=== PATIENT | male | born 1970 | race Caucasian/White ===

== ENCOUNTER 2019-11-10 19:38 | Emergency (ER) | payer SELFPAY ==
[2019-11-10 19:51] VITALS: TEMP 97; BMI 25.5
--- NOTE | 2019-11-10 20:41 | PDOC ---
Attending Attestation - Resident Resident Name: Austin Myas - ED Attending Attestation I have performed the following: I have examined & evaluated the patient, The case was reviewed & discussed with the resident, I agree w/resident's findings & plan - HPI HPI: 11/10/19 23:13 Pt comes with an episode of slurred speech today while he was doing homework with a friend on the computer. He noticed that his speech was slurred, friend didn't notice. Pt states that he got up and started walking and felt a bit off balance. He got nervous and came to the ER, as he has a hx of MS that was diagnosed 15 yrs back. Pt has no other complaints. Pt states that he was is [place] today and then drove abck to [employer] and that he has been drinking a lot of coffee and not eating or hydrating enough. Pt states that he felt sleepy while driving. Pt's neurologists used to be at [facility] in [place] He has not been there in years. However, he states that he will follow up there. - Physicial Exam PE: 11/10/19 23:17 Normal exam HEENT normal heart [id number] lungs CTAB abd soft NT ND no flank pain No extremity swelling No neuro findings Agree with resident exam - Medical Decision Making 11/10/19 21:29 Blood tests are all normal 11/10/19 22:[address] SHOWS NO INTRACRANIAL PATHOLOGY 11/10/19 23:18 Pt is stable for d/c home 11/10/19 23:19 We will hydrate pt in the ER. He has been drinking water in the ER. Discharge - Discharge Information Problems reviewed: Yes Clinical Impression/Diagnosis: Slurred speech, Weakness, History of multiple sclerosis Condition: Fair Disposition: HOME - Follow up/Referral Referrals: [facility] [place] [facility] [Provider Group] Natanael Hwang MD [Staff Physician] - - Patient Discharge Instructions Additional Instructions: You were seen in the ER for slurred speech and weakness. We did a physical exam, EKG, labs, and a CT-scan of your head, which did not show any emergent problems. We gave you referrals for primary care and neurology, and you should follow up with these doctors within one week. Please return to the ER for fever, slurred speech, facial droop, severe headache, weakness in your arms or legs, or for any other concerning symptoms. - Post Discharge Activity
[2019-11-10 20:43] LABS: BASO % 0.7 % (0-2.0); EOS % 2.7 % (0-4.5); HEMATOCRIT 41.4 % (35.4-49); HEMOGLOBIN 14.2 GM/dL (11.7-16.9); LYMPH % 27.7 % (8-40); MCH 29.7 pg (25.7-33.7); MCHC 34.3 g/dl (32.0-35.9); MEAN CELL VOLUME 86.5 fl (80-96); MEAN PLT VOLUME 9.3 fl (7.5-11.1); NEUT % 60.9 % (42.8-82.8); PLATELET COUNT 217 K/MM3 (134-434); RBC 4.78 M/mm3 (4.00-5.60); RDW 13.2 % (11.9-15.9); WHITE BLOOD COUNT 7.1 K/mm3 (4.0-10.0)
--- NOTE | 2019-11-10 21:02 | PDOC ---
History of Present Illness - General Chief Complaint: Weakness Stated Complaint: SLURRED SPEECH Time Seen by Provider: 11/10/19 19:59 - History of Present Illness Initial Comments: 11/10/19 20:29 49yo M with reported PMH of MS (not on meds), depression, and ADHD presents to the hospital concerned he is having a stroke because he was slurring his words around 7pm for around 30 minutes. Patient states this happened 20 years ago and was told he has MS. He reports that yesterday he had a low grade fever, coughing, and sore throat. He got a rapid covid test which he reports as negative. At present, he states those symptoms have resolved, but today he states he has felt generalized weakness, dizziness, and had a 30 minute episode of slurred speech at 7pm. Also reports pain in an upper left tooth. ROS otherwise negative. Patient states he would not take steroids, even if it means he would otherwise. PMH: as above PSH: none Meds: wellbutrin, guaifenesin Allergies: none ETOH: former heavy drinker, last drink 1.5 years ago Drugs: former cannabis user Tobacco: denies PCP: in [place] [facility]: in [facility] Neuro: hasn't seen one in 20 years ROS GENERAL/CONSTITUTIONAL: No fever or chills. weakness. HEAD, EYES, EARS, NOSE AND THROAT: No change in vision. No ear pain or discharge. No sore throat. CARDIOVASCULAR: No chest pain or shortness of breath RESPIRATORY: No cough, wheezing, or hemoptysis. GASTROINTESTINAL: No nausea, vomiting, diarrhea or constipation. GENITOURINARY: No dysuria, frequency, or change in urination. MUSCULOSKELETAL: No joint or muscle swelling or pain. No neck or back pain. SKIN: No rash NEUROLOGIC: No headache, loss of consciousness, or change in strength/sensation. slurred speech ENDOCRINE: No increased thirst. No abnormal weight change HEMATOLOGIC/LYMPHATIC: No anemia, easy bleeding, or history of blood clots. ALLERGIC/IMMUNOLOGIC: No hives or skin allergy. PE GENERAL: Awake, alert, and fully oriented, in no acute distress HEAD: No signs of trauma, normocephalic, atraumatic EYES: PERRLA, EOMI, sclera anicteric, conjunctiva clear ENT: Auricles normal inspection, hearing grossly normal, nares patent, oropharynx clear without exudates. Moist mucosa Mouth: poor dentition. no erythema, fluctuance or tenderness NECK: Normal ROM, supple, no lymphadenopathy, JVD, or masses LUNGS: No distress, speaks full sentences, clear to auscultation bilaterally HEART: Regular rate and rhythm, normal S1 and S2, no murmurs, rubs or gallops, peripheral pulses normal and equal bilaterally. ABDOMEN: Soft, nontender, normoactive bowel sounds. No guarding, no rebound. No masses EXTREMITIES : Normal inspection, Normal range of motion, no edema. No clubbing or cyanosis. NEUROLOGICAL: Cranial nerves II through XII grossly intact. Normal speech, normal gait, no focal sensorimotor deficits SKIN: Warm, Dry, normal turgor, no rashes or lesions noted Vital Signs Temp Pulse Resp BP Pulse Ox 97 F L 80 18 132/87 99 11/10/19 19:48 11/10/19 19:48 11/10/19 19:48 11/10/19 19:48 11/10/19 19:48 MDM: with reported PMH of MS (not on meds), depression, and ADHD presents to the hospital concerned he is having a stroke because he was slurring his words around 7pm for around 30 minutes. Also reports generalized weakness. DDx includes MS flare, stroke, covid, psychosomatic symptoms. -EKG -CT head -CXR -CBC, CMP, trop, alc/tylenol/salicylates 11/10/19 21:04 Spoke with neurologist Eri Alvarez. He doubts the MS diagnosis given no history of flares since initial diagnosis. Also thinks stroke is unlikely given lack of risk factors. If at neurological baseline, recommends outpatient neuro f/u. 11/10/19 21:05 : Katty, brother. Patient gave permission for healthcare team to discuss his medical care with brother Katty. 11/10/19 23:44 EKG: NSR, rate 77, incomplete RBBB, left anterior fascicular block, no ischemic ST-T changes Labs: unremarkable CXR: no acute pathology Given 250ml NS bolus DC home with neuro and PCP referrals tPA Exclusion Checklist 0-3hr - Time Elapsed Date last known well: 11/10/19 Time last known well: 19:00 Elaspsed time: Day(s) and 4 Hour(s) and 44 Minutes - Thrombolytic Therapy Candidate Is the patient eligible for Thrombolytic Therapy?: No - Exclusion Criteria 0-3hr SBP greater than 185 or DBP greater than 110mmHg despite tx: No Recent IC/spinal surgery,head trauma or stroke w/in last 3mo: No Hx of previous IC hemorrhage, IC neoplasm, AVM or aneurysm: No Active internal bleeding: No Blding diathesis(low plt ct, inc PTT,INR>1.7 or use of NOAC): No Symptoms suggest subarachnoid hemorrhage: No CT demonstrates multilobar infarct(>1/3 cerebral hemiphere): No Arterial puncture at noncompressible site in previous 7 days: No Blood glucose concentration less than 50mg/dL (2.7mmol/L): No - Relative Exclusion Criteria 0-3h Care team unable to determine eligibility: No IV/IA thrombolysis/thrombectomy @ another hosp prior arrival: No Life expectancy <1yr/severe co-morbid illness/LEDGER CLERK on admit: No : No Patient/family refused: No Stroke severity too mild (non-disabling): Yes Recent acute PR (w/in previous 3 months): No Seizure at onset with postictal residual neuro impairments: No Major surgery or serious trauma w/in previous 14 days: No Recent GI or hemorrhage (w/in previous 21 days): No - Ineligibility reason(s) Reasons No tPA given: See reason(s) noted above NIH Stroke Scale - Last Known Well Date/Time & Onset Date Last Known Well: 11/10/19 Time Last Known Well: 19:00 - Initial Evaluation Level of consciousness: Alert Ask patient the month and their age: Answers both correctly Ask patient to open & close eyes; make fist and let go: Obeys both correctly Best gaze (horizontal eye movement): Normal Visual field testing: No visual field loss Facial paresis (Show teeth/raise eyebrows/close eyes tight): Normal symmetrical movement Motor Function: Left Arm: Normal Motor Function: Right Arm: Normal (extends arm 90 (or 45) degrees for 10 seconds without drift Motor Function: Left Leg: Normal (extends leg 30 degrees for 5 seconds without drift) Motor Function: Right Leg: Normal (extends leg 30 degrees for 5 seconds without drift) Limb Ataxia: No ataxia Sensory(Use pinprick test arms,legs,trunk,face/side to side): Normal Best language (Describe picture, name items, read sentences): No Aphasia Dysarthria (read several words): Normal articulation Extinction and Inattention: No abnormality - Total Score NIH Stroke Scale Score: 0 Past History - Medical History Allergies/Adverse Reactions: Allergies Allergy/AdvReac Type Severity Reaction Status Date / Time No Known Allergies Allergy Verified 11/10/19 19:51 COPD: No Other medical history: multiple Sclerosis - Psycho-Social/Smoking History Smoking History: Never smoked - Substance Abuse Hx (Audit-C & DAST Scrn) How often the patient has a drink containing alcohol: Never Score: In Men: 4 or > Positive; In Women: 3 or > Positive: 0 Screen Result (Pos requires Nsg. Audit-10AR): Negative *Physical Exam - Vital Signs Last Vital Signs Temp Pulse Resp BP Pulse Ox 97 F L 80 18 132/87 99 11/10/19 19:48 11/10/19 19:48 11/10/19 19:48 11/10/19 19:48 11/10/19 19:48 ED Treatment Course - LABORATORY CBC & Chemistry Diagram: 11/10/19 20:20 11/10/19 20:20 Discharge - Discharge Information Problems reviewed: Yes Clinical Impression/Diagnosis: Slurred speech, Weakness Condition: Fair Disposition: HOME - Admission No - Follow up/Referral Referrals: Natanael Hwang MD [Staff Physician] - [facility] [place] [facility] [place]Provider Group] - Patient Discharge Instructions Additional Instructions: You were seen in the ER for slurred speech and weakness. We did a physical exam, EKG, labs, and a CT-scan of your head, which did not show any emergent problems. We gave you referrals for primary care and neurology, and you should follow up with these doctors within one week. Please return to the ER for fever, slurred speech, facial droop, severe headache, weakness in your arms or legs, or for any other concerning symptoms. - Post Discharge Activity
[2019-11-10 21:14] LABS: ALBUMIN 3.7 g/dl (3.4-5.0); ALK PHOS 59 U/L (45-117); ANION GAP 6 MMOL/L (8-16); BILIRUBIN,TOTAL 0.3 mg/dL (0.2-1); BLOOD UREA NITROGEN 18.4 mg/dL (7-18); CALCIUM 8.6 mg/dL (8.5-10.1); CHLORIDE 104 mmol/L (98-107); CO2 30 mmol/L (21-32); GLUCOSE,RANDOM 100 mg/dL (74-106); POTASSIUM 3.9 mmol/L (3.5-5.1); SGOT/AST 18 U/L (15-37); SGPT/ALT 31 U/L (13-61); SODIUM 141 mmol/L (136-145); TOT PROT 6.1 g/dl (6.4-8.2)
[2019-11-10] MEDS ORDERED: SODIUM CHLORIDE 250 ML IV STA (23:01)
[2019-11-10 23:31] VITALS: BP 128/80; PULSE 81
--- NOTE | 2019-11-11 16:12 | EKG ---
Test Reason : Blood Pressure : / mmHG Vent. Rate : 077 BPM Atrial Rate : 077 BPM P-R Int : 158 ms QRS Dur : 108 ms QT Int : 372 ms P-R-T Axes : 049 -46 024 degrees QTc Int : 420 ms NORMAL SINUS RHYTHM INCOMPLETE RIGHT BUNDLE BRANCH BLOCK LEFT ANTERIOR FASCICULAR BLOCK ABNORMAL ECG NO PREVIOUS ECGS AVAILABLE Confirmed by MD Mason Daniel ([id number]) on 11/11/2019 4:11:38 PM Referred By: Confirmed By:Elian Mason MD
== END 2019-11-10 23:31 | disposition home or self-care (01) ==
LOC: JER 19:38
DX: R47.81 Slurred speech (principal); R53.1 Weakness
CPT/HCPCS: 36415; 70450-TC; 71046-TC-FY; 80053; 80307; 84484; 85025; 93005; 93010; 99284-25